=== PATIENT | male | born 1955 | race Caucasian/White ===

== ENCOUNTER 2020-03-02 12:48 | Emergency (ER) | payer OTHER, SELFPAY ==
[2020-03-02 13:06] VITALS: BP 127/77; PULSE 67; RESP 16; TEMP 37.2; O2SAT 100
--- NOTE | 2020-03-02 13:14 | ED.GENADULT ---
HPI - General Adult General Chief complaint: Back Pain/Injury Stated complaint: back pain Time Seen by Provider: 03/02/20 13:14 Source: patient and RN notes reviewed Mode of arrival: ambulatory Limitations: no limitations History of Present Illness HPI narrative: 64-year-old male presents with complaints of LT lower back pain and shovel yard for the past 6 days. Aleve 2 tablets and 5mg of Flexeril this morning at 06:30, Tylenol ES 2 tablets at 09:00/10:00 and OTC Lidocaine patch with little to no relief. Increase symptoms over the past 24 hours. Armand says he bent over this morning to pull up clothing and LT lower back pain increased with tightness. Denies new injuries or falls. Denies radiating pain, numbness, or tingling. Denies fever or chills. No upper or lower extremity pain or weakness. Exacerbating factors consist of prolong standing and bending. Denies nausea, vomiting, or abdominal pain. Denies problems with urinating or having a bowel movement, LBM today and normal. No flank pain or hematuria or dysuria. The patient reports he have not been diagnosed with COVID-19. The patient reports he is not waiting for the results of a COVID-19 lab test. The patient reports he do not have fever, chills, weakness, or fatigue. The patient reports he do not have a new or worsening cough or shortness of breath. Denies chest pain. The patient reports he do not have any rhinorrhea, congestion, loss of taste, sore throat, nausea, vomiting, abdominal pain, and diarrhea. Tolerating po intake well. Denies recent traveling. Denies concerns for COVID-19 or exposures been home with limited outdoor exposure except for essential household needs, work, and return home. At this time, patient is not suspected of having COVID-19. Some parts of this dictation were generated by voice recognition software and may contain typographical and/or grammatical inaccuracies. Related Data Home Medications Medication Instructions Recorded Confirmed No Home Medications 03/02/20 03/02/20 Allergies Allergy/AdvReac Type Severity Reaction Status Date / Time amoxicillin Allergy Mild RASH Verified 03/02/20 13:23 clavulanic acid Allergy Mild RASH Verified 07/11/18 10:19 Review of Systems Review of Systems: Narrative: CONSTITUTIONAL: Denies fever, chills, sweats. EYES: Denies visual changes, redness, discharge. ENT: Denies rhinorrhea, congestion, sore throat, otalgia. CARDIOVASCULAR: Denies chest pain, palpitations, edema. RESPIRATORY: Denies dyspnea, wheezing, cough. GASTROINTESTINAL: Denies abdominal pain, nausea, vomiting, diarrhea. GENITOURINARY: Denies dysuria, hematuria, abnormal discharge. SKIN: Denies rash or itching. MUSCULOSKELETAL: Complains of LT lower back pain. Denies joint pain or myalgia. NEUROLOGIC: Denies numbness or focal weakness. PSYCHIATRIC: Denies anxiety or depression. All systems reviewed & are unremarkable except as noted in HPI and below PMFSH Past Medical History Medical History (Updated 03/02/20 @ 14:06 by JONAS Purcell) Thumb fracture Wrist fracture Surgical History Surgical History (Updated 03/02/20 @ 14:06 by JONAS Purcell) No significant past surgical history Family History Family History (Updated 03/02/20 @ 14:08 by JONAS Purcell) Father Cancer Mother Hypertension Cardiac dysrhythmia Social History Social History (Updated 03/02/20 @ 14:08 by JONAS Purcell) Smoking status: Former smoker Tobacco type: cigarettes Second hand tobacco smoke exposure: No Alcohol intake: current Substance use: never Living arrangements: with family Occupation/Education: occupation Gender identity (if verbalized by the patient): Male Comments At time of signature, agree with nurse past medical, surgical, social, and family history. There is no relevant family history pertinent to the presenting complaint. Exam Narrative: Exam Narrative
[2020-03-02] MEDS: KETOROLAC (*BKC) 60 MG/2 ML VIAL IM (13:32)
== END 2020-03-02 13:52 | disposition home or self-care (01) ==
PROVIDERS: Emergency Provider Nurse Practitioner Family; PCP Family Medicine Adolescent Medicine
DX: M54.5 Low back pain (principal); Z87.891 Personal history of nicotine dependence
CPT/HCPCS: 96372; 99213; G0463; J1885

== ENCOUNTER 2022-04-15 14:58 | Observation (INO) | payer OTHER, SELFPAY ==
[2022-04-15] VITALS (17 sets, daily range): BP systolic 83–124; BP diastolic 56–86; PULSE 74–144; RESP 15–24; TEMP 36.5–36.8; O2SAT 96–99
--- NOTE | ~2022-04-15 | XR_ITS ---
EXAMINATION: XR chest 1V portable Exam Date/Time: 04/15/2022 15:17 PRINCIPAL EMBEDDED SOFTWARE ENGINEER HISTORY: TACHYCARDIA AND CHEST DISCOMFORT X TODAY. NO CARDIAC HX Comparison: None available. RESULT: Lines, tubes, and devices: None. Lungs and pleura: Clear. Cardiomediastinal silhouette: Unremarkable. Other: No acute osseous or upper abdominal finding. IMPRESSION: No acute cardiopulmonary process. Reviewed, dictated and finalized at location K. CIPAL EMBEDDED SOFTWARE ENGINEER
--- NOTE | 2022-04-15 14:59 | ECG_ITS ---
Measurements Intervals [place] Rate: 141 P: NC: 0 QRS: 32 QRSD: 164 T: 253 QT: 328 QTc: 504 Interpretive Statements ATRIAL FLUTTER/TACHYCARDIA WITH RAPID VENTRICULAR RESPONSE ABNORMAL ECG NO PREVIOUS ECG AVAILABLE FOR COMPARISON Electronically Signed On 04-15-2022 17:31:56 PLANNING OFFICIAL by Neo Esquievl D.O.
[2022-04-15 15:13] LABS: Basophils Absolute Auto 0.1 K/mm3 (0.0-0.1); Basophils Percent Auto 0.8 % (0.2-1.2); Eosinophils Absolute Auto 0.3 K/mm3 (0-0.3); Eosinophils Percent Auto 2.6 % (0-4.4); Hematocrit 45.8 % (42.0-52.0); Hemoglobin 15.5 g/dL (14.0-18.0); Immature Granulocyte Absolute 0.03 K/mm3 (0.00-0.031); Immature Granulocyte Percent A 0.3 % (0-0.5); Lymphocytes Absolute Auto 5.13 K/mm3 (0.9-3.2); Mean Corpuscular HGB Conc 33.8 g/dl (32-36); Mean Corpuscular Hemoglobin 32.1 pg (26-34); Mean Corpuscular Volume 94.8 fl (80-100); Mean Platelet Volume 9.5 fl (7.4-10.4); Monocytes Absolute Auto 0.9 K/mm3 (0.1-0.6); Neutrophils Absolute Auto 4.3 K/mm3 (1.3-6.7); Neutrophils Percent Auto 40.3 % (45.5-73.1); Platelet Count Result 236 k/mm3 (150-375); Red Blood Count 4.83 M/mm3 (4.6-6.20); Red Cell Distribution Width 12.1 % (11.5-14.5); White Blood Count 10.7 K/mm3 (4.5-10.0)
[2022-04-15 15:28] LABS: Alanine Aminotransferase 25 U/L (6-50); Albumin Level 4.3 g/dL (3.5-5.1); Alkaline Phosphatase 80 U/L (38-126); Anion Gap 10 mmol/L (8-16); Aspartate Amino Transferase 26 U/L (17-59); Bilirubin,Total 0.7 mg/dL (0.2-1.3); Blood Urea Nitrogen 15 mg/dL (9-20); Calcium 8.6 mg/dL (8.4-10.2); Carbon Dioxide 25 mmol/L (22-30); Chloride 108 mmol/L (98-107); Estimated CRCL calculation 60 ml/min; Estimated Glomerular Filt Rate > 60; Glucose 110 mg/dL (65-110); INR 1.1; Lipase 86 U/L (23-300); Potassium 3.6 mmol/L (3.4-5.0); Sodium 143 mmol/L (137-145)
[2022-04-15 15:29] LABS: Partial Thromboplastin Time 31.1 SECONDS (22.3-36.8)
[2022-04-15] MEDS: dilTIAZem HCl INJ 25 MG/5 ML VIAL 10 MG IV PUSH (15:32)
[2022-04-15] MEDS: dilTIAZem 100 MG/100 ML 100 MG/100 ML BAG IV CONT (15:32)
[2022-04-15 15:39] LABS: Troponin I < 0.012 ng/mL (0.000-0.034)
--- NOTE | 2022-04-15 15:56 | ED.CHESTPAIN ---
HPI - Chest Pain General Chief Complaint: Chest Pain Stated Complaint: chest discomfort, palpatations Time Seen by Provider: 04/15/22 15:24 Source: patient and family Mode of arrival: ambulatory Limitations: no limitations History of Present Illness HPI narrative: 66 years old white male came to the emergency room because of chest pain and palpitation. At 9 AM today patient just came down from the wrist down on a 3, felt slight chest discomfort, which been constant, went to home, around 2 PM his asked him if his heart rate is fast or normal, subsequently patient found out that his heart rate is high. She came to the emergency room complaining of fast heartbeat. Associated with slight lightheadedness and dizziness. Patient is healthy otherwise does not take medicine at home Related Data Home Medications Medication Instructions Recorded Confirmed No Home Medications 03/02/20 03/02/20 Allergies Allergy/AdvReac Type Severity Reaction Status Date / Time clavulanic acid Allergy Mild RASH Verified 07/11/18 10:19 Review of Systems Review of Systems: All systems reviewed & are unremarkable except as noted in HPI and below PMFSH Past Medical History Medical History Thumb fracture Wrist fracture Surgical History Surgical History No significant past surgical history Family History Family History Father Cancer Mother Hypertension Cardiac dysrhythmia Social History Social History Smoking status: Former smoker Tobacco type: cigarettes Second hand tobacco smoke exposure: No Alcohol intake: current Substance use: never Gender identity (if verbalized by the patient): Male Exam Narrative: General appearance: Well-developed, well-nourished Skin: Normal color Head: Normocephalic, nontraumatic Eyes: Clear conjunctiva ENT: Oropharynx normal, ears normal, nose normal Neck: Supple, nontender Chest and respiratory: Airway patent, no respiratory distress, no accessory muscle use Heart: Tachycardia Abdomen: Soft, nontender, no organomegaly, quiet bowel sounds Vascular: Normal peripheral pulses, normal capillary refill. 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 Johnson Date: 04/15/22 Time: 18:05 Vital Signs Vital signs: Vital Signs Temperature 36.5 C 04/15/22 15:07 Pulse Rate 144 H 04/15/22 15:07 Respiratory Rate 18 04/15/22 15:07 Blood Pressure 109/65 04/15/22 15:07 Pulse Oximetry 99 04/15/22 15:07 Oxygen Delivery Room Air 04/15/22 15:07 Temperature 36.5 C 04/15/22 15:07 Pulse Rate 143 H 04/15/22 15:32 Respiratory Rate 18 04/15/22 15:07 Blood Pressure 124/86 04/15/22 15:32 Pulse Oximetry 99 04/15/22 15:07 Oxygen Delivery Room Air 04/15/22 15:07 MDM - Chest Pain Differential Diagnosis Differential diagnosis: Likely stable angina, unstable angina pectoris, atypical chest pain and other (Tachyarrhythmia) Lab Data Result diagrams: 04/15/22 15:05 04/15/22 15:05 Labs: Lab Results 04/15/22 04/15/22 04/15/22 Range/Units 15:05 15:05 15:05 WBC 10.7 H (4.5-10.0) K/mm3 RBC 4.83 (4.6-6.20) M/mm3 Hgb 15.5 (14.0-18.0) g/dL Hct 45.8 (42.0-52.0) % MCV 94.8 (80-100) fl MCH 32.1 (26-34) pg MCHC 33.8 (32-36) g/dl RDW 12.1 (11.5-14.5) % Plt Count 236
[2022-04-15] MEDS: ASPIRIN 81 MG CHEWABLE TABLET 324 MG PO (16:08)
[2022-04-15] MEDS: ENOXAPARIN 100 MG/ML SYRINGE 92 MG SUB-Q (16:09)
--- NOTE | 2022-04-15 16:45 | PM.IMHP ---
H&P: HPI History of Present Illness Date/Time: 04/15/22 16:45 Chief Complaint: Rapid heart rate and chest discomfort. 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 He was up early and went hunting. At around 09:00 he got down from the deer stand and while walking to the cabin he developed an odd sensation in the mid/upper chest area with mild lightheadedness and shortness of breath. He cannot say that he was experiencing overt chest pain or discomfort although he does admit that perhaps he was feeling slight pressure. His symptoms persisted throughout the day and did not change in intensity. When he returned home at 14:00 he checked his pulse and found to be in the 140s which prompted him to come in for evaluation. On arrival to the ED he was found to be in atrial flutter with rapid ventricular response and he was given a bolus of diltiazem 10 milligrams IV push x1 which did slow his rate somewhat, enough to reveal that he was in atrial fibrillation. He has since been started on a Cardizem drip and his rate is better controlled, ranging between the high 80s to the low 120s at the time my evaluation. He is not having any discomfort at this time and he is resting comfortably. With further questioning he admits to having sporadic episodes over the last 5 years where he will feel sensations in the upper chest which cease abruptly with coughing. They have always been fleeting and have never lasted this long. He has no known history of cardiac dysrhythmia, valvular heart disease, or sleep apnea however he does not sleep well and has witnessed brief episodes of apnea. He does drink caffeine daily and denies using alcohol in significant quantities. No history of thyroid disease. Review of Systems Review of Systems: Twelve systems were reviewed. No recent illnesses. Weight has remained stable. No history of thyroid disease. Appetite is good. No nausea or vomiting. Except as documented, all other systems were reviewed and are negative. [facility] Past Medical History Medical History Thumb fracture Wrist fracture Surgical History Surgical History No significant past surgical history Family History Family History Father Cancer Coronary artery disease Mother Cardiac dysrhythmia Hypertension Social History Social History (Updated 04/15/22 @ 22:24 by Dee Gilbert PA-C) Social History: Surrogate medical decision maker: Pedro García, spouse. Code status: Full code. Smoking status: Never smoker Second hand tobacco smoke exposure: No Alcohol intake: current Drinks per week: 5 Substance use: never Has the Lack of Transportation Kept You From Medical Appointments or From Getting Medications?: No Within the Past 12 Months, Were You Worried Whether Your Food Would Run Out Before You Got Money to Buy More?: Never True What is Your Housing Situation Today?: I Have Housing Are You Worried That in the Next 2 Months, You May Not Have Your Own Housing to Live In?: No Do You Have Trouble Paying Your Heating Or Electricity Bill?: No Do You Have Trouble Paying For Medicines?: No Are You Currently Unemployed and Looking for Work?: No Highest Level of Education Completed: Bachelor's Degree Do You Have Trouble With Childcare or the Care of a Family Member?: No Additional living arrangements comments: The patient lives with his in [place]. 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 Spiritual care concerns: No Meds Home Medications and Allergies Home Medications Medication Instructions Recorded Confirmed Type No Home Medications 04/15/22 04/15/22 His
[2022-04-15 18:28] LABS: Troponin I 0.018 ng/mL (0.000-0.034)
[2022-04-15 20:19] LABS: SARS-CoV-2 RNA PCR Negative
--- NOTE | 2022-04-15 21:15 | PC.NURSE ---
This patient, Armand García, was admitted to IMU Room 214-01. Patient/family oriented to hospital policies and general routines including ID bracelet, bed and alarms, visiting hours, pain management, procedures, bathroom and other care routines, personal items, smoking policy, room service/diet, and visiting hours. Information on how to activate the Rapid Response Team has been discussed. Patient/Family are encouraged to report perceived risks to care and to ask questions if they do not understand what they are told or what they should do.
[2022-04-16] VITALS (11 sets, daily range): BP systolic 95–119; BP diastolic 63–76; PULSE 59–83; RESP 16–20; TEMP 36.2–36.9; O2SAT 98–99
[2022-04-16 05:03] LABS: Anion Gap 10 mmol/L (8-16); Blood Urea Nitrogen 16 mg/dL (9-20); Calcium 8.4 mg/dL (8.4-10.2); Carbon Dioxide 25 mmol/L (22-30); Chloride 108 mmol/L (98-107); Cholesterol 176 mg/dL (0-200); Estimated CRCL calculation 65 ml/min; Estimated Glomerular Filt Rate > 60; Glucose 90 mg/dL (65-110); HDL Direct 45 mg/dL; Magnesium 2.1 mg/dL (1.6-2.3); Potassium 4.2 mmol/L (3.4-5.0); Sodium 143 mmol/L (137-145); Triglycerides 63 mg/dL (<150)
[2022-04-16 05:14] LABS: LDL Cholesterol Direct 99 mg/dL
--- NOTE | 2022-04-16 09:07 | ECG_ITS ---
Measurements Intervals [place] Rate: 68 P: 46 ND: 163 QRS: 7 QRSD: 93 T: 30 QT: 379 QTc: 404 Interpretive Statements SINUS RHYTHM NORMAL ECG COMPARED TO ECG 04/15/2022 15:00:59 SINUS RHYTHM NOW PRESENT Electronically Signed On 04-16-2022 10:29:44 FREIGHT TRAFFIC CONSULTANT by Neo Esquivel D.O.
--- NOTE | 2022-04-16 09:09 | PM.CNCAR ---
Assessment and Plan Assessment and plan (1) Atrial flutter with rapid ventricular response: Code(s): I48.92 - Unspecified atrial flutter Status: Acute (2) Atrial fibrillation with normal ventricular rate: Code(s): I48.91 - Unspecified atrial fibrillation Status: Acute Plan 66-year-old man with paroxysmal atrial fibrillation. He had the onset of tachycardia and palpitations yesterday morning as described in the notes that are in the chart. He was rate control with diltiazem this morning he spontaneously converted to sinus rhythm and appears to be asymptomatic at this time. I will give him 1 more therapeutic dose of Lovenox this morning, review his echocardiogram and then leave recommendations as it pertains to a antiarrhythmic therapy and/or systemic anticoagulation. If he maintains sinus rhythm I anticipate being able to discharge him after I review his ultrasound. Nigel Pham MD [facility] History of Present Illness History of Present Illness Consult date/time: 04/16/22 09:09 Consult reason: atrial fibrillation Reason For Visit: chest pain,a flutter a fib Narrative: This is a 66-year-old gentleman who I have not seen previously and being seen this morning at the request of the hospitalist for assistance with the evaluation and management of atrial flutter/atrial fibrillation. The patient feels well this morning and is asymptomatic. He yesterday was out deer hunting in the morning he was up in a deer stand and at about 9:00 a.m. he decided he would finish his hunting for the day he came down from a deer stand and was walking back to his cabin which was not a stressful walk as it is mostly down hill and he states that he suddenly felt unwell with the sense of some tachycardia/palpitations and some lightheadedness. Not having any chest pain pressure or heaviness. He did not become too alarmed by these symptoms. A short time later he mentioned these to his who is a retired nurse they took his pulse and found to be tachycardic with a heart rate of about 140 so they came to the emergency room for evaluation. In the ED his electrocardiogram appears to show atrial flutter with 2-1 conduction. He was given a therapeutic dose of Lovenox and placed on a diltiazem infusion and admitted to the IMU. This morning he became bradycardic with a heart rate 50-60 his diltiazem was discontinued. While I was seeing the patient in the room and performing the exam he converted to sinus rhythm spontaneously. He has no complaints otherwise at this time. He has been gentleman in very good health at his age he does not have any ongoing medical problems that are known. His is suspicious that he has sleep apnea because of nocturnal snoring but he has never had a formal sleep test performed. An echocardiogram has been ordered out of routine which of course has yet to be performed this morning. For some reason his therapeutic dose of Lovenox was decreased to a prophylactic dose this morning. Review of Systems Constitutional: Constitutional: Reports no additional constitutional complaints Eyes: Eyes: Reports no additional eye complaints ENT: Reports system reviewed and no additional complaints, except as documented Cardiovascular: Cardiovascular: Reports palpitations Respiratory: Respiratory: Reports no additional respiratory complaints Gastrointestinal: Gastrointestinal: Reports no additional gastrointestinal complaints Musculoskeletal: Musculoskeletal: Reports no additional musculoskeletal complaints Integumentary/Breasts: Skin/Breast: Reports system reviewed and no additional complaints, except as docu Neurologic: Reports system reviewed and no additional complaints, except as documented Endocrine: Endocrine: Reports no additional endocrine complaints Hematologic/Lymphatic: Hematologic/Lymphatic: Reports no additional hematologic/lymphatic complaints Allergic/Immunologic: Allergic/Immunologic: Reports no additi
[2022-04-16] MEDS: ASPIRIN 81 MG CHEWABLE TABLET PO (10:05)
[2022-04-16] MEDS: ENOXAPARIN 100 MG/ML SYRINGE 90 MG SUB-Q (10:06)
--- NOTE | 2022-04-16 15:07 | PM.PNCARD ---
Progress Note: A&P Assessment and Plan (1) Atrial flutter with rapid ventricular response: Code(s): I48.92 - Unspecified atrial flutter Status: Acute Plan 66-year-old man with paroxysmal atrial fibrillation high likelihood this is related to sleep apnea. He to sinus rhythm this morning during my physical examination. Echocardiogram looks largely unremarkable other than a very small amount of aortic regurgitation which I do not think is clinically related to this event. I am going to start him on anticoagulation with Xarelto 20 mg per day and arrange for follow-up in the office. He can go home at this time from my perspective. I would recommend that his PCP arrange for formal sleep study and treat sleep apnea a indicated. At this time I am not going to start specific antiarrhythmic therapy. Nigel Pham MD [facility] Subjective Date/time seen: Date of service: 04/16/22 15:07 Interval history: Follow-up visit in this 66-year-old man with paroxysmal atrial fibrillation. He spontaneously converted to sinus rhythm this morning. He is asymptomatic at this time. Reports that apnea link last night was abnormal. Exam Const: General: comfortable and no acute distress HENMT: Mouth: Yes moist mucous membranes Eyes: Sclera: sclerae normal Pupils: Equal, round and reactive pupils present Neck: Neck: supple and no JVD Resp: Auscultation: clear to auscultation bilaterally Cardio: Rate: regular rate Rhythm: regular rhythm GI: GI Palp: Yes Soft to palpation Auscultation: normal bowel sounds Neuro: Other: Alert and oriented x3 Extrem: General: normal to inspection Objective Data Vital Signs Vital Signs: Vital Signs - 24 hr 04/15/22 15:32 04/15/22 16:01 04/15/22 18:02 Temperature Pulse Rate 143 H 81 87 Respiratory Rate 20 20 Blood Pressure 124/86 101/84 109/72 Pulse Oximetry 96 Oxygen Delivery 04/15/22 17:45 04/15/22 17:15 04/15/22 16:45 Temperature Pulse Rate 89 90 85 Respiratory Rate 20 20 22 H Blood Pressure 99/78 L 102/77 97/67 L Pulse Oximetry 98 98 96 Oxygen Delivery 04/15/22 17:31 04/15/22 17:00 04/15/22 16:30 Temperature Pulse Rate 89 92 84 Respiratory Rate 22 H 22 H 19 Blood Pressure 83/62 L 99/66 L 108/72 Pulse Oximetry 97 97 Oxygen Delivery 04/15/22 16:15 04/15/22 18:31 04/15/22 18:46 Temperature Pulse Rate 90 85 76 Respiratory Rate 19 24 H 18 Blood Pressure 113/81 103/68 104/75 Pulse Oximetry 97 Oxygen Delivery 04/15/22 19:16 04/15/22 21:04 04/15/22 21:32 Temperature 36.8 C Pulse Rate 83 75 74 Respiratory Rate 15 22 H 20 Blood Pressure 108/76 98/61 L 108/56 L Pulse Oximetry 97 99 Oxygen Delivery 04/15/22 22:00 04/15/22 22:15 04/16/22 00:00 Temperature Pulse Rate 79 82 Respiratory Rate Blood Pressure Pulse Oximetry Oxygen Delivery Room Air 04/16/22 00:00 04/16/22 02:00 04/16/22 04:00 Temperature Pulse Rate 82 78 77 Respiratory Rate 20 Blood Pressure Pulse Oximetry 99 Oxygen Delivery Room Air 04/16/22 04:00 04/16/22 05:32 04/16/22 05:50 Temperature 36.9 C Pulse Rate 77 71 Respiratory Rate 20 20 Blood Pressure 97/63 L Pulse Oximetry 99 98 98 Oxygen Delivery Room Air Room Air 04/16/22 06:00 04/16/22 08:00 04/16/22 08:00 Temperature 36.4 C Pulse Rate 75 62 80 Respiratory Rate 16 Blood Pressure 101/76 Pulse Oximetry 98 Oxygen Delivery 04/16/22 08:00 04/16/22 12:00 04/16/22 12:00 Temperature 36.2 C L Pulse Rate 66 Respiratory Rate 16 Blood Pressure 95/68 L Pulse Oximetry 99 Oxygen Delivery Room Air Room Air 04/16/22 08:00 04/16/22 10:00 04/16/22 12:00 Temperature Pulse Rate 83 73 59 L Respiratory Rate Blood Pressure Pulse Oximetry Oxygen Delivery 04/16/22 14:00 Temperature Pulse Rate 67 Respiratory Rate Blood Pressure Pulse Oximetry Oxygen Delivery Intake/Output Intake/Output: In
--- NOTE | 2022-04-16 15:44 | PM.DS ---
DS: Admitting Diagnosis Discharge Date 04/16/2022 Admitting Diagnosis palpitation DS: Discharge Diagnosis Discharge Diagnosis (1) Atrial fibrillation with normal ventricular rate: Code(s): I48.91 - Unspecified atrial fibrillation Status: Acute (2) Chest discomfort: Code(s): R07.89 - Other chest pain Status: Acute (3) Suspected sleep apnea: Code(s): R29.818 - Other symptoms and signs involving the nervous system Status: Acute DS: Summary Hospital Course Hospital Course: The patient presented to the ED for evaluation of sudden onset of an odd sensation in the mid to upper chest associated with mild shortness of breath and lightheadedness. This persisted throughout the day with no overt chest pain. He ultimately noticed that his heart rate was in the 140s and he came to the ER where he was found to be in atrial flutter with rapid ventricular response. # newly diagnosed atrial fibrillation with rapid ventricular rate: He was started on Cardizem drip and eventually converted back to sinus rhythm during the hospital stay. Etiology of the atrial fibrillation is not entirely clear. echocardiogram done on 04/16/2022 with normal ejection fraction at 60-65% with no valvular abnormality other than mild aortic valve regurgitation. He was started on therapeutic Lovenox on admission and was switched to Xarelto by the mover. He is not started on anti arrhythmic therapy at this time and will be assessed as an outpatient basis. He did have symptoms suggestive of sleep apnea with snoring and apneic episode and hence ApneaLink test was done during hospital stay which tested the highly suggestive of sleep apnea. He will need a formal sleep study done as an outpatient basis for further evaluation and management. He will follow up with PCP with regard to this. He remained hemodynamically stable throughout the hospital stay. he Is cleared by the mover for discharge home Time Spent with Patient Time attestation: Total time spent providing and/or coordinating discharge services: 40 minutes Exam Narrative: General: Well-developed male sitting up in bed in no distress. HEENT: Wearing corrective lenses. PERRL, EOMI. Sclera anicteric. Oral mucosa moist. Oropharynx clear. Neck: Supple. No carotid bruits. Respiratory: Lungs are clear to auscultation bilaterally. Cardiovascular: regular rate and rhythm. Telemetry shows normal sinus rhythm Gastrointestinal: Abdomen is soft, nontender, and nondistended with positive bowel sounds. Skin: Warm and dry. No rash or lesions on limited exam. Extremities: No cyanosis, clubbing, or edema. Radial and pedal pulses intact. Neurological: Alert. Cranial nerves 2-12 are grossly intact. No gross focal deficits to casual conversation. Psychiatric: Pleasant and cooperative with normal mood and affect. Judgment and insight intact. DS: Data Data Completed and Pending Completed studies during hospitalization: Exam Type: ? ? CA echo doppler color flow Study Info Indications ?? ? - atrial flutter/fibrillation Complete two-dimensional, color flow and Doppler transthoracic echocardiogram is performed. Account #: ? ? [id number] Summary ? 1. Complete two-dimensional, color flow and Doppler transthoracic echocardiogram is performed. ? 2. Left ventricular chamber dimension is normal. ? 3. Left ventricular systolic function is normal, estimated at 60-65%. ? 4. The left ventricular diastolic function is normal. ? 5. Left atrial chamber dimension is mildly enlarged. ? 6. There is mild aortic valve regurgitation. Left Ventricle ? Left ventricular chamber dimension is normal. ? Left ventricular systolic function is normal, estimated at 60-65%. ? The left ventricular diastolic function is normal. Right Ventricle ? Right ventricular chamber dimension is normal. Left Atria ? Left atrial chamber dimension is mildly enlarged. Right Atria ? Right atrial ch
--- NOTE | 2022-04-16 22:32 | ECHO_ITS ---
Patient Info Name: Armand García Age: 66 years : 1955 Gender: Male Ht: 72 in Wt: 192 lbs BSA: 2.11 m2 HR: 62 bpm BP: 97 / 63 mmHg Heart Rhythm: Sinus Rhythm Technical Quality: Fair Exam Date: 04/16/2022 11:31 AM Exam Location: [facility] Pulmonary Patient Status: Outpatient Admit Date: 04/15/2022 Staff Ordering Physician: Dee Gilbert PA-C [employer]: Roxane Mccurdy RDCS Attending Provider: Morris Alvarez MD Referring Physician: Ofelia SANDY; Exam Type: CA echo doppler color flow Study Info Indications - atrial flutter/fibrillation Complete two-dimensional, color flow and Doppler transthoracic echocardiogram is performed. Summary 1. Complete two-dimensional, color flow and Doppler transthoracic echocardiogram is performed. 2. Left ventricular chamber dimension is normal. 3. Left ventricular systolic function is normal, estimated at 60-65%. 4. The left ventricular diastolic function is normal. 5. Left atrial chamber dimension is mildly enlarged. 6. There is mild aortic valve regurgitation. Left Ventricle Left ventricular chamber dimension is normal. Left ventricular systolic function is normal, estimated at 60-65%. The left ventricular diastolic function is normal. Right Ventricle Right ventricular chamber dimension is normal. Left Atria Left atrial chamber dimension is mildly enlarged. Right Atria Right atrial chamber dimension is normal. Aortic Valve The aortic valve is normal. There is mild aortic valve regurgitation. Pulmonic Valve The pulmonic valve is normal. Mitral Valve The mitral valve has normal leaflets. Tricuspid Valve The tricuspid valve leaflets are normal. Pericardium/Pleural The pericardium appears normal. Aorta The aortic root size at the sinus of Valsalva is normal. Left Ventricular Outflow Tract Name Value Normal LVOT 2D LVOT Diameter 2.1 cm LVOT Doppler LVOT Peak Gradient 2 mmHg LVOT Mean Gradient 1 mmHg LVOT VTI 16 cm LVOT VTI/AV VTI Ratio 0.6 LVOT Stroke Volume 59 ml LVOT CO 3.3 l/min LVOT CI 1.6 l/min/m2 Pulmonic Valve Name Value Normal RVOT Doppler RVOT Peak Gradient 1 mmHg PV Doppler PV Peak Gradient 4 mmHg Mitral Valve Name Value Normal MV Doppler MV Decel Davidson
== END 2022-04-16 16:45 | disposition home or self-care (01) ==
LOC: ANHED 19:01 → ANHIMU 20:34
PROVIDERS: Emergency Medicine; Physician Assistant; Admitting Provider Chiropractor; Emergency Provider Emergency Medicine; PCP Family Medicine Adolescent Medicine; Visit Provider Internal Medicine
DX: I48.91 Unspecified atrial fibrillation (principal); R07.89 Other chest pain; R29.818 Other symptoms and signs involving the nervous system; I35.1 Nonrheumatic aortic (valve) insufficiency; R94.31 Abnormal electrocardiogram [ECG] [EKG]; F10.90 Alcohol use, unspecified, uncomplicated; Z20.822 Contact with and (suspected) exposure to COVID-19; Z87.891 Personal history of nicotine dependence; Z82.49 Family history of ischemic heart disease and other diseases of the circulatory system
CPT/HCPCS: 36415; 71045; 80048; 80053; 80061; 83690; 83735; 84443; 84484; 85025; 85610; 85730; 93005; 93306; 96365; 96366; 96372; 99285; A9270; G0378; J1650; U0003; U0005

== ENCOUNTER 2024-01-20 08:07 | Emergency (ER) | payer OTHER, MEDICARE, SELFPAY ==
--- NOTE | 2024-01-20 08:13 | ED.URI ---
HPI - URI/Sore Throat General Chief Complaint: Upper Respiratory Infection Stated Complaint: Sinus Time Seen by Provider: 01/20/24 08:30 Source: patient and RN notes reviewed Mode of arrival: ambulatory Limitations: no limitations History of Present Illness HPI Narrative: 68 year old male presents with concern for 5 day history of sinus congestion and pressure, postnasal drainage, sore throat, cough. Reports he has had ear pain and fever for the last 2 days. He reports he is taking Mucinex DM, Tylenol ibuprofen. MD elicited complaint: cough and nasal congestion Related Data Allergies Allergy/AdvReac Type Severity Reaction Status Date / Time clavulanic acid Allergy Mild RASH Verified 01/20/24 08:14 Review of Systems Review of Systems: CONSTITUTIONAL: Denies malaise, chills, sweats. Reports fever. EYES: Denies visual changes, redness, or discharge. ENT: Reports rhinorrhea, congestion, otalgia and sore throat. CARDIOVASCULAR: Denies chest pain, palpitations, or edema. RESPIRATORY: Reports cough. Denies dyspnea. GASTROINTESTINAL: Denies abdominal pain, nausea, vomiting, diarrhea SKIN: Denies rash or itching. MUSCULOSKELETAL: Reports myalgia. NEUROLOGIC: Denies headache. All systems reviewed & are unremarkable except as noted in HPI and below PMFSH Past Medical History Medical History Thumb fracture Wrist fracture Surgical History Surgical History No significant past surgical history Family History Family History Father Cancer Coronary artery disease Mother Cardiac dysrhythmia Hypertension Social History Social History (Updated 04/15/22 @ 22:24 by Dee Gilbert PA-C) Social History: Surrogate medical decision maker: Pedro García, spouse. Code status: Full code. Smoking status: Never smoker Second hand tobacco smoke exposure: No Alcohol intake: current Drinks per week: 5 Substance use: never Lack of Transportation: No Lack of Food: Never True Current Housing: I Have Housing Concerned About Future Housing: No Difficulty Paying Gas/Electric Bills: No Difficulty Paying for Meds: No Currently Unemployed: No Education: Bachelor's Degree Difficulty w/ Childcare or Family Care: No Living arrangements: with family Additional living arrangements comments: The patient lives with his in [place]. 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 Spiritual care concerns: No Comments At time of signature, agree with nursing past medical, surgical, social and family history. There is no relevant family history pertinent to the presenting complaint Exam Narrative: GENERAL: Well-appearing, well-nourished, and in no acute distress. HEAD: Normocephalic EYES: PERRLA, conjunctivae clear ENT: Nares clear, clear discharge. Mucous membranes moist. Left TM pearly gallagher with dull light reflex, right TM erythematous and bulging; no tragal tenderness. Oropharynx erythematous without lesions. Tonsils not enlarged and without exudate, no drooling, no hoarseness, no trismus, uvula midline. NECK: Supple. No lymphadenopathy CHEST: Clear to auscultation, breath sounds equal. No wheezing, rhonchi, rales, or stridor. No respiratory distress, speaks in full sentences. HEART: Regular rate and rhythm. No murmur heard. SKIN: Warm, dry, no rash. NEURO: Alert and oriented x3. PSYCH: Normal mood and affect Course Course Emergency Course: Patient is aware of diagnosis, understands and agrees to treatment plan. Anticipatory guidance given. Patient agrees to follow-up as directed and is aware of reasons to seek care at the emergency department. Portions of this record may have been created with voice recognition software Level of Care: Expre
[2024-01-20 08:20] VITALS: BP 151/78; PULSE 89; RESP 16; TEMP 37.5; O2SAT 100
[2024-01-20 08:33] LABS: EDSTREPNEGPOS1 Presumptive Negative
[2024-01-20 08:36] LABS: EDSTREPNEGPOS1 Presumptive Negative
== END 2024-01-20 08:45 | disposition home or self-care (01) ==
PROVIDERS: Emergency Provider Nurse Practitioner; PCP Family Medicine Adolescent Medicine
DX: H66.91 Otitis media, unspecified, right ear (principal)
CPT/HCPCS: 87081; 87880; 99213; G0463